=== PATIENT | female | born 1945 | race Caucasian/White ===

== ENCOUNTER 2016-12-30 09:52 | Outpatient (CLI) | payer MEDICARE ==
[2016-12-30 10:19] LABS: #Basophils 0.1 thou/uL (0.0-0.2); #Eosinphils 0.1 thou/uL (0.0-0.7); #Lymphocytes 1.8 thou/uL (1.20-3.40); #Monocytes 0.5 thou/uL (0.11-0.59); #Neutrophils 4.3 thou/uL (1.40-6.50); %Basophils 0.9 % (0.0-1.0); %Eosinophils 1.2 % (0.0-10.0); %Lymphocytes 26.3 % (21.0-51.0); %Monocytes 7.1 % (0.0-10.0); %Neutrophils 64.6 % (42.0-75.0); Hemoglobin 14.8 g/dL (12.0-16.0); Mean Corpuscular HGB CONC 32.1 g/dL (32.0-36.0); Mean Corpuscular Hemoglobin 31.4 pg (27.0-31.0); Mean Corpuscular Volume 97.7 fl (81.0-99.0); Mean Platelet Volume 8.3 fL (7.4-10.4); Platelet Count 206 thou/uL (130-400); RBC Distribution Width 12.1 % (11.5-14.5); Red Blood Cell (RBC) Count 4.72 mill/uL (4.20-5.40); White Blood Cell (WBC) Count 6.7 thou/uL (4.8-10.8)
[2016-12-30 11:05] LABS: ALT (SGPT) 16 U/L (8-55); AST (SGOT) 18 U/L (5-34); Albumin 4.2 g/dL (3.4-4.8); Alkaline Phosphatase 79 U/L (40-150); Anion Gap 11 mmol/L (10-20); BUN (Urea Nitrogen) 12 mg/dL (9.8-20.1); Bilirubin, Total 0.8 mg/dL (0.2-1.2); Calc. Creatinine Clearance 0 mL/min (70-130); Calcium 9.5 mg/dL (7.8-10.44); Carbon Dioxide 31 mmol/L (23-31); Cardiac Risk 5.9 (Less than 4.5); Chloride 102 mmol/L (98-107); Cholesterol 259 mg/dl (< 200 Desired); Estimated GFR-MDRD 80; Globulin 3.2 g/dL (2.4-3.5); Glucose 90 mg/dL (83-110); HDL Cholesterol 44 mg/dL (>60 Neg Risk); LDL Cholesterol, Calculated 180 mg/dL; Protein, Total 7.4 g/dL (6.0-8.3); Sodium 140 mmol/L (136-145); Triglycerides 176 mg/dL (Less than 150)
[2016-12-30 11:22] LABS: Thyroid Stimulating Hormone 1.5352 uIU/mL (0.35-4.94)
[2016-12-30 12:29] LABS: Vitamin D, 25 Hydroxy 20.2 ng/ml (> 30.0)
== END 2016-12-30 09:53 | disposition home or self-care (01) ==
LOC: MADLAB 09:52
PROVIDERS: ATTEND Family Medicine
DX: Z13.220 Encounter for screening for lipoid disorders (principal); E55.9 Vitamin D deficiency, unspecified; L65.9 Nonscarring hair loss, unspecified; G62.9 Polyneuropathy, unspecified
CPT/HCPCS: 36415; 80053; 80061; 82306; 84443; 85025

== ENCOUNTER 2018-03-18 09:28 | Outpatient (CLI) | payer MEDICARE ==
--- NOTE | 2018-03-18 10:09 | RAD ---
LEFT KNEE FOUR VIEWS: History: Left knee pain. FINDINGS/IMPRESSION: No fracture, dislocation, or bony destruction is seen. Mild degenerative changes are present. POS: [facility]
== END 2018-03-18 09:29 | disposition home or self-care (01) ==
LOC: MADRAD 09:28
PROVIDERS: ATTEND Physician Assistant
DX: M25.562 Pain in left knee (principal); M25.462 Effusion, left knee; M17.12 Unilateral primary osteoarthritis, left knee

== ENCOUNTER 2019-05-14 09:42 | Emergency (ER) | payer MEDICARE ==
--- NOTE | 2019-05-14 10:26 | RAD ---
Exam: Single view of the pelvis HISTORY: Pelvic and hip pain after injury COMPARISON: None FINDINGS: A single view the pelvis shows no evidence of acute fracture or dislocation. No degenerativ e changes seen in either hip. Isha are seen projecting over the left lower pelvis. IMPRESSION: No evidence of acute osseous abnormality.
--- NOTE | 2019-05-14 10:29 | RAD ---
EXAM: 2 views of the right hip HISTORY: Right hip pain COMPARISON: None FINDINGS: 2 views of the right hip shows no evidence of acute fracture or dislocation. No degenerativ e changes are seen. No soft tissue swelling is present. IMPRESSION: No evidence of acute osseous abnormality.
== END 2019-05-14 11:33 | disposition home or self-care (01) ==
LOC: MADERS 09:42
DX: S70.01XA Contusion of right hip, initial encounter (principal); B02.9 Zoster without complications; F41.9 Anxiety disorder, unspecified; Z79.899 Other long term (current) drug therapy; Z79.82 Long term (current) use of aspirin; W18.11XA Fall from or off toilet without subsequent striking against object, initial encounter
CPT/HCPCS: 72170

== ENCOUNTER 2020-02-22 12:46 | Emergency (ER) | payer MEDICARE ==
[~2020-02-22 12:46] MED LIST: Sodium Chloride 0.9% 1,000 ML BAG ONE
[2020-02-22] MEDS ORDERED: Ondansetron PF 4 MG/2 ML Vial ONE (13:14)
[2020-02-22 13:46] LABS: #Basophils 0.1 thou/uL (0.0-0.2); #Lymphocytes 1.4 thou/uL (1.20-3.40); #Monocytes 0.6 thou/uL (0.11-0.59); #Neutrophils 6.4 thou/uL (1.40-6.50); %Basophils 0.9 % (0.0-1.0); %Lymphocytes 16.4 % (21.0-51.0); %Monocytes 7.1 % (0.0-10.0); %Neutrophils 75.6 % (42.0-75.0); Mean Corpuscular HGB CONC 32.9 g/dL (32.0-36.0); Mean Corpuscular Hemoglobin 31.2 pg (27.0-31.0); Mean Corpuscular Volume 94.8 fL (78.0-98.0); Mean Platelet Volume 8.9 fL (7.4-10.4); Platelet Count 192 thou/uL (130-400); RBC Distribution Width 11.8 % (11.5-14.5); Red Blood Cell (RBC) Count 5.45 mill/uL (4.20-5.40); White Blood Cell (WBC) Count 8.5 thou/uL (4.8-10.8)
[2020-02-22 14:00] LABS: ALT (SGPT) 17 U/L (8-55); AST (SGOT) 24 U/L (5-34); Albumin 4.2 g/dL (3.4-4.8); Alkaline Phosphatase 89 U/L (40-110); Anion Gap 20 mmol/L (10-20); BUN (Urea Nitrogen) 19 mg/dL (9.8-20.1); Bilirubin, Total 0.9 mg/dL (0.2-1.2); Calc. Creatinine Clearance 0 mL/min (70-130); Calcium 9.6 mg/dL (7.8-10.44); Carbon Dioxide 24 mmol/L (23-31); Chloride 103 mmol/L (98-107); Estimated GFR-MDRD 74; Globulin 3.5 g/dL (2.4-3.5); Glucose 95 mg/dL (83-110); Lipase 7 U/L (8-78); Potassium 3.9 mmol/L (3.5-5.1); Protein, Total 7.7 g/dL (6.0-8.3); Sodium 143 mmol/L (136-145)
[2020-02-23 14:51] LABS: SARS-CoV-2 MS2 Positive; SARS-CoV-2 N Gene Negative; SARS-CoV-2 S Gene Negative; SARS-CoV-2 by NAA Not Detected (NotDetected); SARS-CoV-2 orf1ab Negative
== END 2020-02-22 14:50 | disposition home or self-care (01) ==
LOC: MADERS 12:46
DX: A08.4 Viral intestinal infection, unspecified (principal); Z20.828 Contact with and (suspected) exposure to other viral communicable diseases; F41.9 Anxiety disorder, unspecified; M81.0 Age-related osteoporosis without current pathological fracture; J43.9 Emphysema, unspecified; Z79.899 Other long term (current) drug therapy
CPT/HCPCS: 80053; 83605; 83690; 85025; 86140; 87635; 96361; 96374; J2405; J7050; U0003

== ENCOUNTER 2020-08-02 12:58 | Outpatient (CLI) | payer MEDICARE | END 2020-08-02 12:59 | disposition home or self-care (01) | LOC: MADRAD 12:58 | PROVIDERS: ATTEND Family Medicine | DX: G63 Polyneuropathy in diseases classified elsewhere (principal); R10.9 Unspecified abdominal pain; M47.816 Spondylosis without myelopathy or radiculopathy, lumbar region; M85.88 Other specified disorders of bone density and structure, other site | CPT/HCPCS: 72110 ==

== ENCOUNTER 2023-10-30 14:32 | Emergency (ER) | payer MEDICARE, OTHER ==
[2023-10-30] MEDS ORDERED: Meclizine HCl 25 MG TAB ONE (15:07)
[2023-10-30] MEDS ORDERED: Sodium Chloride 0.9% 0 ML ONE (15:08)
[2023-10-30 15:19] LABS: #Basophils 0.1 thou/uL (0.0-0.2); #Eosinphils 0.1 thou/uL (0.0-0.7); #Lymphocytes 1.2 thou/uL (1.20-3.40); #Monocytes 0.4 thou/uL (0.11-0.59); #Neutrophils 6.3 thou/uL (1.40-6.50); %Basophils 0.7 % (0.0-1.0); %Eosinophils 0.7 % (0.0-10.0); %Lymphocytes 14.8 % (21.0-51.0); %Monocytes 5.5 % (0.0-10.0); %Neutrophils 78.3 % (42.0-75.0); Hematocrit 47.4 % (36.0-47.0); Hemoglobin 15.1 g/dL (12.0-16.0); Mean Corpuscular HGB CONC 31.8 g/dL (32.0-36.0); Mean Corpuscular Hemoglobin 31.1 pg (27.0-31.0); Mean Corpuscular Volume 97.7 fl (78.0-98.0); Mean Platelet Volume 7.5 fL (7.4-10.4); Platelet Count 200 10x3/uL (130-400); RBC Distribution Width 12.3 % (11.5-14.5); Red Blood Cell (RBC) Count 4.85 mill/uL (4.20-5.40)
[2023-10-30] MEDS ORDERED: Sodium Chloride 0.9% 500 ML ONE (15:19)
[2023-10-30 15:35] LABS: ALT (SGPT) 12 U/L (8-55); AST (SGOT) 19 U/L (5-34); Albumin 3.9 g/dL (3.4-4.8); Alkaline Phosphatase 85 U/L (40-110); Anion Gap 14 mmol/L (10-20); BUN (Urea Nitrogen) 13 mg/dL (9.8-20.1); Bilirubin, Total 0.6 mg/dL (0.2-1.2); Calc. Creatinine Clearance 0 mL/min (70-130); Calcium 9.3 mg/dL (7.8-10.44); Carbon Dioxide 26 mmol/L (23-31); Chloride 107 mmol/L (98-107); Estimated GFR 82; Globulin 3.2 g/dL (2.4-3.5); Glucose 114 mg/dL (83-110); Potassium 4.6 mmol/L (3.5-5.1); Protein, Total 7.1 g/dL (5.8-8.1); Sodium 142 mmol/L (136-145)
[2023-10-30 15:40] LABS: Troponin I Less than 0.010 ng/mL (< 0.028)
[2023-10-30 16:08] LABS: Bilirubin Negative (Negative); Blood, Urine Negative (Negative); Clarity Clear (Clear); Glucose, Urine (Dipstick) Negative (Negative); Ketone, Urine Negative (Negative); Leukocyte Negative (Negative); Nitrite Negative (Negative); Protein, Urine (Dipstick) Negative (Neg-Trace)
[2023-10-30 16:18] LABS: CAUTI Indications for Culture Dysuria,urgency,freq; RBC/HPF 0-3 HPF (0-3); WBC/HPF 0-3 HPF (0-3)
[2023-10-30 16:19] LABS: Bacteria/HPF Rare-Few HPF (None Seen); Urine Culture Reflex No No
[2023-10-30 17:29] LABS: Troponin I Less than 0.010 ng/mL (< 0.028)
== END 2023-10-30 17:46 | disposition home or self-care (01) ==
LOC: MADERS 14:32
DX: R07.89 Other chest pain (principal); R42 Dizziness and giddiness; I10 Essential (primary) hypertension; J44.9 Chronic obstructive pulmonary disease, unspecified; Z79.899 Other long term (current) drug therapy; Z79.82 Long term (current) use of aspirin; Z86.73 Personal history of transient ischemic attack (TIA), and cerebral infarction without residual deficits
CPT/HCPCS: 36415; 70450; 71045; 71046; 80053; 81001; 84484; 85025; 93005; 96360; J7030; J7050